=== PATIENT | female | born 1965 | race Caucasian/White ===

== ENCOUNTER 2016-05-18 09:38 | Emergency (ER) | payer BC ==
[~2016-05-18 09:38] MED LIST: ALLEGRA ALLERG180 MG PO; ASPIRIN 32325 MG/TAB PO; ATROVENT I0.2 MG/1 M IH; CELLCEPT500 MG PO; CHANTIX1 TAB PO; CYCLOBENZAPRINE10 M2 PO; CYCLOBENZAPRINE10 MG PO; FIORINAL 50-321 EACH; FIORINAL 50-321 EACH PO; FIORINAL-COD 31 EACH; FLONASE NASAL S16 GM NS; INDOCIN25 MG PO; MEDROL 4MG DOSPA4 MG PO; MIRAPEX0.75 MG PO; NORCO 325 MG-7.1 TAB PO; ORPHENADRINE C100 MG PO; PERCOCET 325 MG1 TA5 PO; PERCOCET 325 MG1 TAB PO; PLAQUENIL200 MG PO; PRAMIPEXOLE D0.25 MG PO; PREDNISONE20 M1 PO; PRILOSEC 20MG20 MG PO; PROVENTIL0.09 MG/Ac IH; ST. JOSEPH81 M2 PO; SYNTHROID0.025 MG PO; SYNTHROID0.1 MG/TAB PO; TRAZADONE HYDR100 MG PO; VENTOLIN0.09 MG IH; ZESTRIL 5MG5 MG PO; ZYRTEC10 M3 PO
[2016-05-18] MEDS ORDERED: MASON NATURAL2000 IU PO (10:27)
[2016-05-18] MEDS ORDERED: POTASSIUM GLUC500 M1 PO (10:27)
[2016-05-18] MEDS ORDERED: ASPIRIN E.C. 8181 MG PO (10:28)
[2016-05-18] MEDS ORDERED: BLACK COHOSH40 M2 PO (10:28)
[2016-05-18] MEDS ORDERED: LOPERAMIDE2 M2 PO (10:29)
[2016-05-18] MEDS ORDERED: LEVO-T112 MCG PO (10:29)
[2016-05-18] MEDS ORDERED: NORCO 325 MG-51 TA1 PO (11:53)
[2016-05-18] MEDS ORDERED: MOBIC7.5 MG PO (11:53)
[2016-05-18 12:27] VITALS: BP 102/59
== END 2016-05-18 12:33 | disposition home or self-care (01) ==
LOC: ED 09:38
DX: M94.0 Chondrocostal junction syndrome [Tietze] (principal); M32.8 Other forms of systemic lupus erythematosus; R07.89 Other chest pain; F17.210 Nicotine dependence, cigarettes, uncomplicated
CPT/HCPCS: J1885; J3010

== ENCOUNTER → 2016-06-17 | Outpatient (CLI) | payer BC ==
[~2016-06-17] MED LIST changes: +ASPIRIN E.C. 8181 MG PO; +BLACK COHOSH40 M2 PO; +LEVO-T112 MCG PO; +LOPERAMIDE2 M2 PO; +MASON NATURAL2000 IU PO; +MOBIC7.5 MG PO; +NORCO 325 MG-51 TA1 PO; +POTASSIUM GLUC500 M1 PO
== END ==
LOC: LAB 13:26
DX: Z00.00 Encounter for general adult medical examination without abnormal findings (principal); K21.0 Gastro-esophageal reflux disease with esophagitis; R03.0 Elevated blood-pressure reading, without diagnosis of hypertension; E03.9 Hypothyroidism, unspecified; G25.81 Restless legs syndrome; M32.9 Systemic lupus erythematosus, unspecified

== ENCOUNTER → 2016-10-13 | Outpatient (CLI) | payer BC | LOC: LAB 19:15 | DX: M32.9 Systemic lupus erythematosus, unspecified (principal); N30.01 Acute cystitis with hematuria ==

== ENCOUNTER → 2016-11-03 | Outpatient (CLI) | payer BC | LOC: LAB 18:51 | DX: N30.01 Acute cystitis with hematuria (principal) ==

== ENCOUNTER → 2016-11-04 | Outpatient (CLI) | payer BC | LOC: LAB 11:58 | DX: N30.01 Acute cystitis with hematuria (principal) ==

== ENCOUNTER → 2016-11-07 | Outpatient (CLI) | payer BC | LOC: LAB 12:16 | DX: M32.9 Systemic lupus erythematosus, unspecified (principal); M54.9 Dorsalgia, unspecified ==

== ENCOUNTER 2016-11-15 15:11 | Emergency (ER) | payer OTHER ==
[~2016-11-15] VITALS: Ht 167.6 cm; Wt 80.9 kg
[2016-11-15] MEDS ORDERED: PREDNISONE20 M1 PO (18:23)
[2016-11-15 18:36] VITALS: BP 123/65
== END 2016-11-15 18:35 | disposition home or self-care (01) ==
LOC: ED 15:11
DX: T78.09XA Anaphylactic reaction due to other food products, initial encounter (principal); R06.02 Shortness of breath; X58.XXXA Exposure to other specified factors, initial encounter
CPT/HCPCS: J0171; J1200; J2930; J7030

== ENCOUNTER 2017-10-27 20:48 | Emergency (ER) | payer BC ==
[~2017-10-27] VITALS: Ht 165.1 cm; Wt 81.8 kg
[~2017-10-27 20:48] MED LIST changes: +PLAQUENIL 200M200 MG PO
[2017-10-27] MEDS ORDERED: MIRAPEX0.75 MG PO (20:56)
[2017-10-27 21:10] LABS: EOS # 0.2 (0.04-0.40); EOS % 2.3 % (1.0-5.0); HEMATOCRIT 44.6 % (37.0-47.0); HEMOGLOBIN 14.7 g/dL (12.5-16.0); LYMPH# 2.4 (1.50-4.00); MEAN CELL VOLUME 94 fl (78-100); MEAN CORPUSCULAR HEMOGLOBIN 31 pg (27-31); MEAN CORPUSCULAR HGB CONC 33 g/dL (33-37); MEAN PLATELET VOLUME 8.9 fl (7.4-10.4); MONO # 0.6 (0.20-0.80); PLATELET COUNT 367 K/mm3 (130-400); RED BLOOD COUNT 4.74 M/mm3 (4.10-5.30); RED CELL DISTRIBUTION WIDTH 14.7 % (11.5-14.5); WHITE BLOOD COUNT 9.3 K/mm3 (4.8-10.8)
[2017-10-27 21:22] LABS: ALBUMIN 4.4 g/dL (3.5-5.0); BUN/CREATININE RATIO 7.3 (6.0-26.0); CALCIUM 9.3 mg/dL (8.4-10.2); POTASSIUM 3.7 mmol/L (3.6-5.0); TOTAL BILIRUBIN 0.7 mg/dL (0.2-1.3); TOTAL PROTEIN 8.3 g/dL (6.3-8.2)
[2017-10-27 21:57] LABS: URINE APPEARANCE CLEAR; URINE BILIRUBIN NEGATIVE (NEGATIVE); URINE BLOOD NEGATIVE (NEGATIVE); URINE COLOR YELLOW; URINE GLUCOSE NEGATIVE (NEGATIVE); URINE KETONE NEGATIVE (NEGATIVE); URINE LEUKOCYTE ESTERASE NEGATIVE (NEGATIVE); URINE NITRATE NEGATIVE (NEGATIVE); URINE PROTEIN(semi-quant) NEGATIVE (NEGATIVE); URINE UROBILINOGEN NORMAL (NORMAL)
[2017-10-27 21:58] LABS: PARTIAL THROMBOPLASTIN TIME 22.4 SECONDS (21.0-32.0); PROTHROMBIN TIME 9.9 SECONDS (9.0-12.0)
[2017-10-28 00:44] VITALS: BP 126/76
== END 2017-10-28 00:44 | disposition short-term general hospital (02) ==
LOC: ED 20:48
PROVIDERS: Family Medicine
DX: R51 Headache (principal); G81.91 Hemiplegia, unspecified affecting right dominant side; R25.9 Unspecified abnormal involuntary movements; M32.9 Systemic lupus erythematosus, unspecified; Z79.899 Other long term (current) drug therapy; Z86.69 Personal history of other diseases of the nervous system and sense organs
CPT/HCPCS: J2060; J2997; J3010

== ENCOUNTER → 2017-11-06 | Outpatient (CLI) | payer BC ==
[2017-10-28 00:44] VITALS: BP 126/76
[~2017-11-06] MED LIST changes: +ACETAMINOPHEN-H1 TA2 PO; +ATORVASTATIN CA40 MG PO; +CEFUROXIME AXE250 MG PO; +CLOPIDOGREL75 M2 PO; +DESYREL50 MG PO; +FEXOFENADINE H180 M1 PO; +LEVOTHYROXINE125 MCG PO; +LISINOPRIL20 MG PO; +OMEPRAZOLE D/R20 MG PO
[2017-11-06 16:08] LABS: PH-URINE 5.5 (5.0 - 8.0); URINE APPEARANCE CLEAR; URINE BILIRUBIN NEGATIVE (NEGATIVE); URINE BLOOD NEGATIVE (NEGATIVE); URINE COLOR PALE YELLOW; URINE GLUCOSE NEGATIVE (NEGATIVE); URINE KETONE NEGATIVE (NEGATIVE); URINE LEUKOCYTE ESTERASE NEGATIVE (NEGATIVE); URINE NITRATE NEGATIVE (NEGATIVE); URINE PROTEIN(semi-quant) TRACE mg/dL (NEGATIVE); URINE UROBILINOGEN NORMAL (NORMAL)
[2017-11-06 16:09] LABS: URINE WBC 0-1 /hpf (0-3)
== END ==
LOC: LAB 15:10
PROVIDERS: Family Medicine
DX: R35.8 Other polyuria (principal)

== ENCOUNTER 2017-11-07 15:51 | Emergency (ER) | payer BC ==
[~2017-11-07] VITALS: Wt 86.5 kg
[~2017-11-07 15:51] MED LIST changes: -ACETAMINOPHEN-H1 TA2 PO; -ATORVASTATIN CA40 MG PO; -CEFUROXIME AXE250 MG PO; -CLOPIDOGREL75 M2 PO; -DESYREL50 MG PO; -FEXOFENADINE H180 M1 PO; -LEVOTHYROXINE125 MCG PO; -LISINOPRIL20 MG PO; -OMEPRAZOLE D/R20 MG PO
[2017-11-07] MEDS ORDERED: LISINOPRIL20 MG PO (16:19)
[2017-11-07] MEDS ORDERED: CEFUROXIME AXE250 MG PO (16:19)
[2017-11-07] MEDS ORDERED: LEVOTHYROXINE125 MCG PO (16:19)
[2017-11-07] MEDS ORDERED: OMEPRAZOLE D/R20 MG PO (16:19)
[2017-11-07] MEDS ORDERED: CLOPIDOGREL75 M2 PO (16:19)
[2017-11-07] MEDS ORDERED: ACETAMINOPHEN-H1 TA2 PO (16:20)
[2017-11-07] MEDS ORDERED: ATORVASTATIN CA40 MG PO (16:20)
[2017-11-07] MEDS ORDERED: DESYREL50 MG PO (16:20)
[2017-11-07] MEDS ORDERED: FIORINAL 50-321 EACH PO (16:20)
[2017-11-07] MEDS ORDERED: FEXOFENADINE H180 M1 PO (16:21)
[2017-11-07 16:57] LABS: EOS # 0.3 (0.04-0.40); EOS % 2.8 % (1.0-5.0); HEMOGLOBIN 13.8 g/dL (12.5-16.0); LYMPH# 2.9 (1.50-4.00); MEAN CELL VOLUME 95 fl (78-100); MEAN CORPUSCULAR HEMOGLOBIN 31 pg (27-31); MEAN CORPUSCULAR HGB CONC 33 g/dL (33-37); MEAN PLATELET VOLUME 9.6 fl (7.4-10.4); NEU # 5.5 (1.40-6.50); PLATELET COUNT 344 K/mm3 (130-400); RED BLOOD COUNT 4.44 M/mm3 (4.10-5.30); RED CELL DISTRIBUTION WIDTH 14.2 % (11.5-14.5); WHITE BLOOD COUNT 9.7 K/mm3 (4.8-10.8)
[2017-11-07 17:09] LABS: ALBUMIN 4.1 g/dL (3.5-5.0); BUN/CREATININE RATIO 16.9 (6.0-26.0); POTASSIUM 3.5 mmol/L (3.6-5.0); TOTAL BILIRUBIN 0.2 mg/dL (0.2-1.3); TOTAL PROTEIN 7.5 g/dL (6.3-8.2)
[2017-11-07 17:53] VITALS: BP 164/76
== END 2017-11-07 17:45 | disposition short-term general hospital (02) ==
LOC: ED 15:51
PROVIDERS: Nurse Practitioner Primary Care
DX: I63.9 Cerebral infarction, unspecified (principal); I10 Essential (primary) hypertension; G81.91 Hemiplegia, unspecified affecting right dominant side; R47.01 Aphasia; R40.2412 Glasgow coma scale score 13-15, at arrival to emergency department; F17.200 Nicotine dependence, unspecified, uncomplicated; Z86.73 Personal history of transient ischemic attack (TIA), and cerebral infarction without residual deficits; M32.9 Systemic lupus erythematosus, unspecified; Z79.899 Other long term (current) drug therapy; Z79.02 Long term (current) use of antithrombotics/antiplatelets; H53.8 Other visual disturbances
CPT/HCPCS: J1170; J3010

== ENCOUNTER → 2017-12-06 | Outpatient (CLI) | payer BC ==
[2017-11-07 17:53] VITALS: BP 164/76
[~2017-12-06] MED LIST changes: +ACETAMINOPHEN-H1 TA2 PO; +ATORVASTATIN CA40 MG PO; +CEFUROXIME AXE250 MG PO; +CLOPIDOGREL75 M2 PO; +DESYREL50 MG PO; +FEXOFENADINE H180 M1 PO; +LEVOTHYROXINE125 MCG PO; +LISINOPRIL20 MG PO; +OMEPRAZOLE D/R20 MG PO
[2017-12-06 12:28] LABS: CALCIUM 9.3 mg/dL (8.4-10.2); POTASSIUM 3.9 mmol/L (3.6-5.0)
== END ==
LOC: LAB 11:27
PROVIDERS: Family Medicine
DX: I63.412 Cerebral infarction due to embolism of left middle cerebral artery (principal); L93.2 Other local lupus erythematosus; R60.9 Edema, unspecified; E03.9 Hypothyroidism, unspecified

== ENCOUNTER → 2017-12-19 | Outpatient (CLI) | payer BC | LOC: MAMMO 13:45 | DX: Z13.820 Encounter for screening for osteoporosis (principal); M85.80 Other specified disorders of bone density and structure, unspecified site; Z87.39 Personal history of other diseases of the musculoskeletal system and connective tissue; Z12.31 Encounter for screening mammogram for malignant neoplasm of breast ==

== ENCOUNTER 2018-01-03 15:28 | Emergency (ER) | payer BC ==
[~2018-01-03] VITALS: Ht 165.1 cm; Wt 83.9 kg
[2018-01-03] MEDS ORDERED: CYCLOBENZAPRINE10 M1 PO (16:08)
[2018-01-03] MEDS ORDERED: ALDACTONE 25MG25 MG PO (16:09)
[2018-01-03] MEDS ORDERED: OSTERA TABLET1 EACH PO (16:09)
[2018-01-03] MEDS ORDERED: CALCIUM 600600 M2 PO (16:09)
[2018-01-03] MEDS ORDERED: PRINIVIL5 M1 PO (16:09)
[2018-01-03] MEDS ORDERED: TOPIRAMATE100 MG PO (16:13)
[2018-01-03] MEDS ORDERED: ALPRAZOLAM0.25 MG PO (16:45)
[2018-01-03 17:00] VITALS: BP 112/65
== END 2018-01-03 16:48 | disposition home or self-care (01) ==
LOC: ED 15:28
DX: F43.9 Reaction to severe stress, unspecified (principal); F98.5 Adult onset fluency disorder; I69.322 Dysarthria following cerebral infarction; I10 Essential (primary) hypertension; J45.909 Unspecified asthma, uncomplicated; F17.200 Nicotine dependence, unspecified, uncomplicated; R40.2412 Glasgow coma scale score 13-15, at arrival to emergency department; G43.909 Migraine, unspecified, not intractable, without status migrainosus; E03.9 Hypothyroidism, unspecified; Z79.02 Long term (current) use of antithrombotics/antiplatelets; Z79.899 Other long term (current) drug therapy

== ENCOUNTER 2018-01-26 10:30 | Outpatient (RCR) | payer BC ==
[~2018-01-26 10:30] MED LIST changes: +ALDACTONE 25MG25 MG PO; +ALPRAZOLAM0.25 MG PO; +CALCIUM 600600 M2 PO; +CYCLOBENZAPRINE10 M1 PO; +OSTERA TABLET1 EACH PO; +PRINIVIL5 M1 PO; +TOPIRAMATE100 MG PO
== END 2018-01-26 11:00 | disposition home or self-care (01) ==
LOC: SPEECH 10:30
DX: I69.351 Hemiplegia and hemiparesis following cerebral infarction affecting right dominant side (principal); I69.320 Aphasia following cerebral infarction; I69.398 Other sequelae of cerebral infarction; L93.1 Subacute cutaneous lupus erythematosus; R51 Headache; F32.9 Major depressive disorder, single episode, unspecified; R60.9 Edema, unspecified; E03.9 Hypothyroidism, unspecified

== ENCOUNTER → 2018-02-02 | Outpatient (CLI) | payer BC ==
[2018-01-03 17:00] VITALS: BP 112/65
== END ==
LOC: LAB 13:59
PROVIDERS: Family Medicine
DX: E03.9 Hypothyroidism, unspecified (principal)

== ENCOUNTER 2018-03-15 14:00 | Outpatient (RCR) | payer BC | END 2018-03-15 14:30 | disposition home or self-care (01) | LOC: SPEECH 14:00 | DX: I69.351 Hemiplegia and hemiparesis following cerebral infarction affecting right dominant side (principal); I69.398 Other sequelae of cerebral infarction; L93.1 Subacute cutaneous lupus erythematosus; R51 Headache; F32.9 Major depressive disorder, single episode, unspecified ==

== ENCOUNTER 2018-05-23 17:51 | Emergency (ER) | payer BC, OTHER ==
[~2018-05-23] VITALS: Ht 165.1 cm; Wt 79.9 kg
[~2018-05-23 17:51] MED LIST changes: -ATORVASTATIN CA40 MG PO; +ATORVASTATIN CA80 MG PO; +FIORICET 325 MG1 TAB PO; +MIRAPEX0.25 M1 PO
[2018-05-23 18:30] LABS: EOS # 0.2 (0.04-0.40); EOS % 2.5 % (1.0-5.0); HEMATOCRIT 41.9 % (37.0-47.0); HEMOGLOBIN 13.4 g/dL (12.5-16.0); MEAN CELL VOLUME 96 fl (78-100); MEAN CORPUSCULAR HEMOGLOBIN 31 pg (27-31); MEAN CORPUSCULAR HGB CONC 32 g/dL (33-37); MEAN PLATELET VOLUME 9.1 fl (7.4-10.4); MONO # 0.6 (0.20-0.80); NEU # 3.9 (1.40-6.50); PLATELET COUNT 373 K/mm3 (130-400); RED BLOOD COUNT 4.38 M/mm3 (4.10-5.30); RED CELL DISTRIBUTION WIDTH 13.6 % (11.5-14.5); WHITE BLOOD COUNT 7.7 K/mm3 (4.8-10.8)
[2018-05-23] MEDS ORDERED: DAILY VALUE1 EACH PO (18:36)
[2018-05-23] MEDS ORDERED: BENADRYL PO (18:39)
[2018-05-23] MEDS ORDERED: EPINEPHRIN0.3 MG/0.3 IJ (18:39)
[2018-05-23] MEDS ORDERED: EXCEDRIN MIGRA1 EACH PO (18:40)
[2018-05-23 18:42] LABS: ALBUMIN 4.2 g/dL (3.5-5.0); CALCIUM 9.5 mg/dL (8.4-10.2); POTASSIUM 3.5 mmol/L (3.6-5.0); TOTAL BILIRUBIN 0.5 mg/dL (0.2-1.3); TOTAL PROTEIN 6.9 g/dL (6.3-8.2)
[2018-05-23 19:20] LABS: URINE COLOR YELLOW
[2018-05-23 19:21] LABS: URINE APPEARANCE CLEAR; URINE BILIRUBIN NEGATIVE (NEGATIVE); URINE BLOOD NEGATIVE (NEGATIVE); URINE GLUCOSE NEGATIVE (NEGATIVE); URINE KETONE NEGATIVE (NEGATIVE); URINE LEUKOCYTE ESTERASE NEGATIVE (NEGATIVE); URINE NITRATE NEGATIVE (NEGATIVE); URINE PROTEIN(semi-quant) TRACE mg/dL (NEGATIVE); URINE UROBILINOGEN NORMAL (NORMAL); URINE WBC 0-1 /hpf (0-3)
[2018-05-23 19:37] VITALS: BP 154/98
== END 2018-05-23 19:38 | disposition home or self-care (01) ==
LOC: ED 17:51
PROVIDERS: Physician Assistant
DX: G43.909 Migraine, unspecified, not intractable, without status migrainosus (principal); E87.6 Hypokalemia; I63.9 Cerebral infarction, unspecified; I10 Essential (primary) hypertension; E03.9 Hypothyroidism, unspecified; L93.0 Discoid lupus erythematosus; Z88.2 Allergy status to sulfonamides; Z88.0 Allergy status to penicillin; Z88.5 Allergy status to narcotic agent; Z88.6 Allergy status to analgesic agent; Z87.891 Personal history of nicotine dependence; Z90.49 Acquired absence of other specified parts of digestive tract; Z90.710 Acquired absence of both cervix and uterus
CPT/HCPCS: J1885; J2405; J3010; J7030

== ENCOUNTER → 2018-07-23 | Outpatient (CLI) | payer BC, OTHER ==
[~2018-07-23] MED LIST changes: +BENADRYL PO; +DAILY VALUE1 EACH PO; +EPINEPHRIN0.3 MG/0.3 IJ; +EXCEDRIN MIGRA1 EACH PO
[2018-07-23 17:53] LABS: EOS # 0.2 (0.04-0.40); EOS % 2.4 % (1.0-5.0); HEMATOCRIT 41.5 % (37.0-47.0); LYMPH# 2.8 (1.50-4.00); MEAN CELL VOLUME 96 fl (78-100); MEAN CORPUSCULAR HEMOGLOBIN 30 pg (27-31); MEAN CORPUSCULAR HGB CONC 31 g/dL (33-37); MEAN PLATELET VOLUME 9.2 fl (7.4-10.4); MONO # 0.6 (0.20-0.80); NEU # 4.3 (1.40-6.50); PLATELET COUNT 397 K/mm3 (130-400); RED BLOOD COUNT 4.34 M/mm3 (4.10-5.30); RED CELL DISTRIBUTION WIDTH 13.4 % (11.5-14.5); WHITE BLOOD COUNT 7.9 K/mm3 (4.8-10.8)
[2018-07-23 17:57] LABS: ALBUMIN 4.2 g/dL (3.5-5.0); CALCIUM 9.7 mg/dL (8.4-10.2); POTASSIUM 3.2 mmol/L (3.6-5.0); TOTAL BILIRUBIN 0.4 mg/dL (0.2-1.3); TOTAL PROTEIN 7.2 g/dL (6.3-8.2)
[2018-07-24 16:53] LABS: HEPATITIS B CORE AB TOTAL Negative (()); HEPATITIS B SURFACE ANTIGEN Negative (Negative); HEPATITIS C VIRUS ANTIBODY Negative (Negative)
== END ==
LOC: LAB 16:51
PROVIDERS: Physician Assistant
DX: B19.20 Unspecified viral hepatitis C without hepatic coma (principal); Z79.899 Other long term (current) drug therapy

== ENCOUNTER 2018-09-26 22:17 | Emergency (ER) | payer BC, OTHER ==
[2018-09-26] MEDS ORDERED: MIRAPEX0.75 MG PO (23:35)
[2018-09-26] MEDS ORDERED: TOBRAMYCIN AND D5 ML OP (23:36)
[2018-09-26] MEDS ORDERED: AIMOVIG AU140 MG/1 M SQ (23:36)
[2018-09-26] MEDS ORDERED: NEURONTIN300 MG/CAP PO (23:37)
[2018-09-26] MEDS ORDERED: METOCLOPRAMIDE10 M5 PO (23:37)
[2018-09-26] MEDS ORDERED: HUMIRA PEN80 MG/0.8 SQ (23:37)
[2018-09-26] MEDS ORDERED: BUTORPHANOL10 MG/M1 NS (23:38)
[2018-09-26] MEDS ORDERED: POTASSIUM600 MG PO (23:39)
[2018-09-27 00:24] VITALS: BP 152/96
== END 2018-09-27 00:28 | disposition home or self-care (01) ==
LOC: ED 22:17
DX: G43.909 Migraine, unspecified, not intractable, without status migrainosus (principal); I10 Essential (primary) hypertension; Z86.73 Personal history of transient ischemic attack (TIA), and cerebral infarction without residual deficits; Z90.49 Acquired absence of other specified parts of digestive tract; Z90.710 Acquired absence of both cervix and uterus; Z79.02 Long term (current) use of antithrombotics/antiplatelets; Z88.0 Allergy status to penicillin; Z88.2 Allergy status to sulfonamides; Z88.5 Allergy status to narcotic agent; Z88.6 Allergy status to analgesic agent; Z88.8 Allergy status to other drugs, medicaments and biological substances; Z87.891 Personal history of nicotine dependence
CPT/HCPCS: J1200; J1885; J2550

== ENCOUNTER → 2018-11-09 | Outpatient (CLI) | payer BC, OTHER ==
[~2018-11-09] MED LIST changes: +AIMOVIG AU140 MG/1 M SQ; +BUTORPHANOL10 MG/M1 NS; +HUMIRA PEN80 MG/0.8 SQ; +METOCLOPRAMIDE10 M5 PO; +NEURONTIN300 MG/CAP PO; +POTASSIUM600 MG PO; +TOBRAMYCIN AND D5 ML OP
[2018-11-09 11:05] LABS: EOS # 0.2 (0.04-0.40); EOS % 1.5 % (1.0-5.0); HEMATOCRIT 42.6 % (37.0-47.0); LYMPH# 3.3 (1.50-4.00); MEAN CELL VOLUME 94 fl (78-100); MEAN CORPUSCULAR HEMOGLOBIN 31 pg (27-31); MEAN CORPUSCULAR HGB CONC 33 g/dL (33-37); MEAN PLATELET VOLUME 8.8 fl (7.4-10.4); MONO # 0.8 (0.20-0.80); NEU # 6.4 (1.40-6.50); PLATELET COUNT 357 K/mm3 (130-400); RED BLOOD COUNT 4.53 M/mm3 (4.10-5.30); RED CELL DISTRIBUTION WIDTH 13.9 % (11.5-14.5); WHITE BLOOD COUNT 10.7 K/mm3 (4.8-10.8)
[2018-11-09 12:42] LABS: ALBUMIN 4.1 g/dL (3.5-5.0); POTASSIUM 3.6 mmol/L (3.5-5.1)
[2018-11-09 12:43] LABS: CALCIUM 9.6 mg/dL (8.3-10.5)
[2018-11-09 12:44] LABS: TOTAL PROTEIN 6.8 g/dL (6.4-8.3)
[2018-11-09 12:46] LABS: TOTAL BILIRUBIN 0.5 mg/dL (0.2-1.2)
[2018-11-09 14:15] LABS: URINE MUCUS PRESENT (NOT PRESENT)
== END ==
LOC: LAB 10:55
DX: M32.12 Pericarditis in systemic lupus erythematosus (principal)

== ENCOUNTER → 2018-11-14 | Outpatient (CLI) | payer BC, OTHER | LOC: RAD 06:57 | DX: M51.16 Intervertebral disc disorders with radiculopathy, lumbar region (principal); M51.17 Intervertebral disc disorders with radiculopathy, lumbosacral region; M46.96 Unspecified inflammatory spondylopathy, lumbar region; M46.97 Unspecified inflammatory spondylopathy, lumbosacral region; M32.9 Systemic lupus erythematosus, unspecified ==

== ENCOUNTER → 2018-12-31 | Outpatient (CLI) | payer BC, OTHER ==
[2018-12-31 16:57] LABS: HEMATOCRIT 40.3 % (37.0-47.0); HEMOGLOBIN 13.3 g/dL (12.5-16.0); MEAN PLATELET VOLUME 9.1 fl (7.4-10.4); RED BLOOD COUNT 4.25 M/mm3 (4.10-5.30); RED CELL DISTRIBUTION WIDTH 14.6 % (11.5-14.5); WHITE BLOOD COUNT 7.2 K/mm3 (4.8-10.8)
[2018-12-31 17:14] LABS: ALBUMIN 4.2 g/dL (3.5-5.0)
== END ==
LOC: LAB 16:34
PROVIDERS: Family Medicine
DX: Z51.81 Encounter for therapeutic drug level monitoring (principal); Z79.899 Other long term (current) drug therapy

== ENCOUNTER → 2019-01-22 | Outpatient (CLI) | payer BC | LOC: MAMMO 11:19 | DX: Z12.31 Encounter for screening mammogram for malignant neoplasm of breast (principal) ==

== ENCOUNTER → 2019-05-02 | Outpatient (CLI) | payer BC | LOC: LAB 10:44 | DX: E03.9 Hypothyroidism, unspecified (principal); E78.00 Pure hypercholesterolemia, unspecified ==

== ENCOUNTER → 2019-05-22 | Outpatient (CLI) | payer BC | LOC: RAD 07:09 | DX: M25.751 Osteophyte, right hip (principal) ==

== ENCOUNTER → 2019-07-22 | Outpatient (CLI) | payer BC | LOC: LAB 16:26 | DX: R05 Cough (principal) ==

== ENCOUNTER 2019-07-30 15:17 | Emergency (ER) | payer BC ==
[~2019-07-30] VITALS: Ht 165.1 cm; Wt 81.8 kg
[2019-07-30 16:25] LABS: EOS # 0.2 (0.04-0.40); EOS % 2.4 % (1.0-5.0); HEMOGLOBIN 13.9 g/dL (12.5-16.0); LYMPH# 3.5 (1.50-4.00); MEAN CELL VOLUME 98 fl (78-100); MEAN CORPUSCULAR HEMOGLOBIN 31 pg (27-31); MEAN CORPUSCULAR HGB CONC 32 g/dL (33-37); MEAN PLATELET VOLUME 9.4 fl (7.4-10.4); MONO # 0.9 (0.20-0.80); PLATELET COUNT 310 K/mm3 (130-400); RED BLOOD COUNT 4.48 M/mm3 (4.10-5.30); RED CELL DISTRIBUTION WIDTH 14.4 % (11.5-14.5); WHITE BLOOD COUNT 9.7 K/mm3 (4.8-10.8)
[2019-07-30 16:34] LABS: ALBUMIN 4.1 g/dL (3.5-5.0)
[2019-07-30 16:35] LABS: SODIUM 143 mmol/L (136-145)
[2019-07-30 16:36] LABS: CALCIUM 9.2 mg/dL (8.3-10.5)
[2019-07-30 16:37] LABS: GLUCOSE 72 mg/dL (65-105); TOTAL PROTEIN 6.8 g/dL (6.4-8.3)
[2019-07-30 16:38] LABS: CARBON DIOXIDE 24 mmol/L (22-29)
[2019-07-30 16:39] LABS: TOTAL BILIRUBIN 0.4 mg/dL (0.2-1.2)
[2019-07-30 16:42] LABS: AST-SGOT 19 U/L (5-34)
[2019-07-30 16:43] LABS: ALT/SGPT 25 U/L (0-55)
[2019-07-30 16:45] LABS: D-DIMER 0.27 mg/L FEU (0.15-0.50)
[2019-07-30 16:46] LABS: URINE APPEARANCE CLEAR; URINE COLOR YELLOW
[2019-07-30 16:47] LABS: URINE BILIRUBIN NEGATIVE (NEGATIVE); URINE BLOOD NEGATIVE (NEGATIVE); URINE GLUCOSE NEGATIVE (NEGATIVE); URINE KETONE NEGATIVE (NEGATIVE); URINE LEUKOCYTE ESTERASE NEGATIVE (NEGATIVE); URINE MUCUS PRESENT (NOT PRESENT); URINE NITRATE NEGATIVE (NEGATIVE); URINE PROTEIN(semi-quant) TRACE mg/dL (NEGATIVE); URINE UROBILINOGEN NORMAL (NORMAL)
[2019-07-30 16:50] LABS: TROPONIN-I < 0.03 ng/mL (<0.030)
[2019-07-30] MEDS ORDERED: ZESTRIL5 M1 PO (17:16)
[2019-07-30] MEDS ORDERED: PROAIR HFA0.09 MG/AC INH (17:17)
[2019-07-30] MEDS ORDERED: ALBUTEROL2.5 MG/3 M INH (17:18)
[2019-07-30] MEDS ORDERED: FLUTICASON0.05 MG/AC NS (17:19)
[2019-07-30 20:11] VITALS: BP 115/69
== END 2019-07-30 20:11 | disposition home or self-care (01) ==
LOC: ED 15:17
PROVIDERS: Nurse Practitioner Family
DX: I95.1 Orthostatic hypotension (principal); E86.0 Dehydration; G43.909 Migraine, unspecified, not intractable, without status migrainosus; E03.9 Hypothyroidism, unspecified; K21.9 Gastro-esophageal reflux disease without esophagitis; I10 Essential (primary) hypertension; Z87.891 Personal history of nicotine dependence; Z86.73 Personal history of transient ischemic attack (TIA), and cerebral infarction without residual deficits; Z90.710 Acquired absence of both cervix and uterus; Z90.89 Acquired absence of other organs; Z79.02 Long term (current) use of antithrombotics/antiplatelets; Z79.51 Long term (current) use of inhaled steroids
CPT/HCPCS: J0595; J7030

== ENCOUNTER → 2019-09-26 | Outpatient (CLI) | payer BC ==
[~2019-09-26] MED LIST changes: +ALBUTEROL2.5 MG/3 M INH; +FLUTICASON0.05 MG/AC NS; +PROAIR HFA0.09 MG/AC INH; +ZESTRIL5 M1 PO
[2019-09-26 15:04] LABS: EOS # 0.2 (0.04-0.40); EOS % 3.1 % (1.0-5.0); HEMATOCRIT 43.1 % (37.0-47.0); LYMPH# 2.6 (1.50-4.00); MEAN CELL VOLUME 96 fl (78-100); MEAN CORPUSCULAR HEMOGLOBIN 31 pg (27-31); MEAN CORPUSCULAR HGB CONC 33 g/dL (33-37); MEAN PLATELET VOLUME 9.2 fl (7.4-10.4); MONO # 0.6 (0.20-0.80); NEU # 3.6 (1.40-6.50); PLATELET COUNT 352 K/mm3 (130-400); RED BLOOD COUNT 4.48 M/mm3 (4.10-5.30); RED CELL DISTRIBUTION WIDTH 14.1 % (11.5-14.5); WHITE BLOOD COUNT 7.1 K/mm3 (4.8-10.8)
[2019-09-26 15:10] LABS: ALBUMIN 4.1 g/dL (3.5-5.0)
[2019-09-26 15:11] LABS: POTASSIUM 3.9 mmol/L (3.5-5.1)
[2019-09-26 15:12] LABS: CALCIUM 9.1 mg/dL (8.3-10.5)
[2019-09-26 15:13] LABS: TOTAL PROTEIN 6.6 g/dL (6.4-8.3)
[2019-09-26 15:15] LABS: TOTAL BILIRUBIN 0.3 mg/dL (0.2-1.2)
[2019-09-26 15:17] LABS: PH-URINE 7.5 (5.0 - 8.0); URINE APPEARANCE CLEAR; URINE BILIRUBIN NEGATIVE (NEGATIVE); URINE BLOOD NEGATIVE (NEGATIVE); URINE COLOR YELLOW; URINE GLUCOSE NEGATIVE (NEGATIVE); URINE KETONE NEGATIVE (NEGATIVE); URINE LEUKOCYTE ESTERASE NEGATIVE (NEGATIVE); URINE NITRATE NEGATIVE (NEGATIVE); URINE PROTEIN(semi-quant) NEGATIVE (NEGATIVE); URINE UROBILINOGEN NORMAL (NORMAL); URINE WBC 0-1 /hpf (0-3)
[2019-09-26 15:27] LABS: PARTIAL THROMBOPLASTIN TIME 23.4 SECONDS (21.0-32.0); PROTHROMBIN TIME 9.6 SECONDS (9.0-12.0)
== END ==
LOC: AMSURD 14:30
PROVIDERS: Family Medicine
DX: Z01.818 Encounter for other preprocedural examination (principal); M48.062 Spinal stenosis, lumbar region with neurogenic claudication; I63.412 Cerebral infarction due to embolism of left middle cerebral artery; I10 Essential (primary) hypertension; M32.9 Systemic lupus erythematosus, unspecified

== ENCOUNTER 2019-09-30 16:22 | Emergency (ER) | payer BC ==
[~2019-09-30] VITALS: Ht 165.1 cm; Wt 84.9 kg
[2019-09-30 17:56] LABS: EOS # 0.2 (0.04-0.40); EOS % 1.4 % (1.0-5.0); HEMATOCRIT 42.1 % (37.0-47.0); HEMOGLOBIN 13.6 g/dL (12.5-16.0); MEAN CELL VOLUME 96 fl (78-100); MEAN CORPUSCULAR HEMOGLOBIN 31 pg (27-31); MEAN CORPUSCULAR HGB CONC 32 g/dL (33-37); MEAN PLATELET VOLUME 9.5 fl (7.4-10.4); MONO # 0.8 (0.20-0.80); NEU # 7.9 (1.40-6.50); PLATELET COUNT 333 K/mm3 (130-400); RED BLOOD COUNT 4.39 M/mm3 (4.10-5.30); RED CELL DISTRIBUTION WIDTH 13.6 % (11.5-14.5); WHITE BLOOD COUNT 10.9 K/mm3 (4.8-10.8)
[2019-09-30 18:02] LABS: ALBUMIN 3.9 g/dL (3.5-5.0); POTASSIUM 3.9 mmol/L (3.5-5.1)
[2019-09-30 18:03] LABS: CALCIUM 8.3 mg/dL (8.3-10.5)
[2019-09-30 18:05] LABS: TOTAL PROTEIN 6.3 g/dL (6.4-8.3)
[2019-09-30 18:06] LABS: TOTAL BILIRUBIN 0.4 mg/dL (0.2-1.2)
[2019-09-30 19:00] VITALS: BP 181/117
== END 2019-09-30 19:20 | disposition short-term general hospital (02) ==
LOC: ED 16:22
PROVIDERS: Family Medicine
DX: T23.352A Burn of third degree of left palm, initial encounter (principal); T25.322A Burn of third degree of left foot, initial encounter; T25.321A Burn of third degree of right foot, initial encounter; T21.01XA Burn of unspecified degree of chest wall, initial encounter; T21.02XA Burn of unspecified degree of abdominal wall, initial encounter; T31.10 Burns involving 10-19% of body surface with 0% to 9% third degree burns; X14.1XXA Other contact with hot air and other hot gases, initial encounter; Y92.009 Unspecified place in unspecified non-institutional (private) residence as the place of occurrence of the external cause
CPT/HCPCS: J1170; J2270; J2405; J7030

== ENCOUNTER 2019-11-08 11:36 | Emergency (ER) | payer BC, OTHER ==
[~2019-11-08] VITALS: Ht 162.6 cm; Wt 80.9 kg
[2019-11-08 12:43] LABS: EOS # 0.2 (0.04-0.40); EOS % 2.5 % (1.0-5.0); HEMATOCRIT 42.4 % (37.0-47.0); HEMOGLOBIN 13.7 g/dL (12.5-16.0); LYMPH# 2.2 (1.50-4.00); MEAN CELL VOLUME 97 fl (78-100); MEAN CORPUSCULAR HEMOGLOBIN 31 pg (27-31); MEAN CORPUSCULAR HGB CONC 32 g/dL (33-37); MEAN PLATELET VOLUME 9.3 fl (7.4-10.4); MONO # 0.5 (0.20-0.80); NEU # 3.9 (1.40-6.50); PLATELET COUNT 365 K/mm3 (130-400); RED BLOOD COUNT 4.38 M/mm3 (4.10-5.30); RED CELL DISTRIBUTION WIDTH 13.9 % (11.5-14.5); WHITE BLOOD COUNT 6.7 K/mm3 (4.8-10.8)
[2019-11-08 12:48] LABS: ALBUMIN 4.2 g/dL (3.5-5.0); POTASSIUM 3.7 mmol/L (3.5-5.1); SODIUM 143 mmol/L (136-145)
[2019-11-08 12:49] LABS: CALCIUM 9.3 mg/dL (8.3-10.5)
[2019-11-08 12:51] LABS: GLUCOSE 107 mg/dL (65-105)
[2019-11-08 12:52] LABS: CARBON DIOXIDE 24 mmol/L (22-29); TOTAL BILIRUBIN 0.2 mg/dL (0.2-1.2)
[2019-11-08 12:55] LABS: PARTIAL THROMBOPLASTIN TIME 22.5 SECONDS (21.0-32.0); PROTHROMBIN TIME 9.3 SECONDS (9.0-12.0)
[2019-11-08 12:56] LABS: AST-SGOT 13 U/L (5-34)
[2019-11-08 12:57] LABS: ALT/SGPT 16 U/L (0-55)
[2019-11-08 13:04] LABS: TROPONIN-I < 0.03 ng/mL (<0.030)
[2019-11-08 13:55] LABS: URINE APPEARANCE CLEAR; URINE BILIRUBIN NEGATIVE (NEGATIVE); URINE BLOOD NEGATIVE (NEGATIVE); URINE COLOR YELLOW; URINE GLUCOSE NEGATIVE (NEGATIVE); URINE KETONE NEGATIVE (NEGATIVE); URINE LEUKOCYTE ESTERASE NEGATIVE (NEGATIVE); URINE NITRATE NEGATIVE (NEGATIVE); URINE PROTEIN(semi-quant) TRACE mg/dL (NEGATIVE); URINE UROBILINOGEN NORMAL (NORMAL)
[2019-11-08 13:56] LABS: URINE MUCUS PRESENT (NOT PRESENT)
[2019-11-08 15:59] VITALS: BP 137/81
== END 2019-11-08 16:00 | disposition home or self-care (01) ==
LOC: ED 11:36
PROVIDERS: Nurse Practitioner
DX: R51 Headache (principal); I10 Essential (primary) hypertension; M54.2 Cervicalgia; Z86.73 Personal history of transient ischemic attack (TIA), and cerebral infarction without residual deficits; Z87.891 Personal history of nicotine dependence; Z79.02 Long term (current) use of antithrombotics/antiplatelets; Z79.51 Long term (current) use of inhaled steroids
CPT/HCPCS: J1170; J1885; J2405; J7030

== ENCOUNTER 2019-11-25 20:59 | Emergency (ER) | payer BC, OTHER ==
[~2019-11-25] VITALS: Ht 165.1 cm; Wt 79.4 kg
[2019-11-25] MEDS ORDERED: TIZANIDINE HYDRO4 MG PO (21:17)
[2019-11-25] MEDS ORDERED: METHOCARBAMOL500 M1 PO (21:17)
[2019-11-25] MEDS ORDERED: ZESTRIL5 M1 PO (21:18)
[2019-11-25 21:30] LABS: EOS # 0.3 (0.04-0.40); EOS % 1.8 % (1.0-5.0); HEMATOCRIT 46.1 % (37.0-47.0); HEMOGLOBIN 15.2 g/dL (12.5-16.0); LYMPH# 4.5 (1.50-4.00); MEAN CELL VOLUME 96 fl (78-100); MEAN CORPUSCULAR HEMOGLOBIN 32 pg (27-31); MEAN CORPUSCULAR HGB CONC 33 g/dL (33-37); MEAN PLATELET VOLUME 8.6 fl (7.4-10.4); MONO # 0.9 (0.20-0.80); PLATELET COUNT 428 K/mm3 (130-400); RED BLOOD COUNT 4.81 M/mm3 (4.10-5.30); RED CELL DISTRIBUTION WIDTH 13.6 % (11.5-14.5); WHITE BLOOD COUNT 15.2 K/mm3 (4.8-10.8)
[2019-11-25 21:32] LABS: NEU # 9.4 (1.40-6.50)
[2019-11-25 21:39] LABS: ALBUMIN 4.5 g/dL (3.5-5.0)
[2019-11-25 21:40] LABS: POTASSIUM 3.5 mmol/L (3.5-5.1)
[2019-11-25 21:41] LABS: CALCIUM 9.5 mg/dL (8.3-10.5)
[2019-11-25 21:42] LABS: TOTAL PROTEIN 7.7 g/dL (6.4-8.3)
[2019-11-25 21:44] LABS: TOTAL BILIRUBIN 0.3 mg/dL (0.2-1.2)
[2019-11-25 23:32] LABS: URINE APPEARANCE CLEAR; URINE COLOR YELLOW; URINE GLUCOSE NEGATIVE (NEGATIVE); URINE KETONE NEGATIVE (NEGATIVE); URINE PROTEIN(semi-quant) NEGATIVE (NEGATIVE)
[2019-11-25 23:33] LABS: URINE BILIRUBIN NEGATIVE (NEGATIVE); URINE BLOOD NEGATIVE (NEGATIVE); URINE LEUKOCYTE ESTERASE NEGATIVE (NEGATIVE); URINE NITRATE NEGATIVE (NEGATIVE); URINE UROBILINOGEN NORMAL (NORMAL); URINE WBC 0-1 /hpf (0-3)
[2019-11-26 01:11] VITALS: BP 156/105
== END 2019-11-26 01:11 | disposition short-term general hospital (02) ==
LOC: ED 20:59
PROVIDERS: Nurse Practitioner
DX: T81.89XA Other complications of procedures, not elsewhere classified, initial encounter (principal); M54.5 Low back pain; G89.18 Other acute postprocedural pain; Z87.891 Personal history of nicotine dependence; Z90.710 Acquired absence of both cervix and uterus; Z90.49 Acquired absence of other specified parts of digestive tract; Z98.890 Other specified postprocedural states
CPT/HCPCS: J2550; J3010

== ENCOUNTER → 2019-12-05 | Outpatient (CLI) | payer BC, OTHER ==
[2019-11-26 01:11] VITALS: BP 156/105
[~2019-12-05] MED LIST changes: +METHOCARBAMOL500 M1 PO; +TIZANIDINE HYDRO4 MG PO
[2019-12-05 09:32] LABS: POTASSIUM 3.8 mmol/L (3.5-5.1)
[2019-12-05 09:34] LABS: CALCIUM 9.6 mg/dL (8.3-10.5)
[2019-12-05 09:41] LABS: EOS # 0.3 (0.04-0.40); HEMATOCRIT 41.4 % (37.0-47.0); HEMOGLOBIN 13.3 g/dL (12.5-16.0); LYMPH# 4.1 (1.50-4.00); MEAN CELL VOLUME 99 fl (78-100); MEAN CORPUSCULAR HEMOGLOBIN 32 pg (27-31); MEAN CORPUSCULAR HGB CONC 32 g/dL (33-37); MEAN PLATELET VOLUME 9.1 fl (7.4-10.4); NEU # 5.1 (1.40-6.50); PLATELET COUNT 405 K/mm3 (130-400); RED BLOOD COUNT 4.19 M/mm3 (4.10-5.30); RED CELL DISTRIBUTION WIDTH 13.7 % (11.5-14.5); WHITE BLOOD COUNT 10.6 K/mm3 (4.8-10.8)
[2019-12-05 23:15] LABS: FOLATE (FOLIC ACID) 14.9 ng/mL (7.0-31.4)
== END ==
LOC: LAB 09:16
PROVIDERS: Family Medicine
DX: M54.9 Dorsalgia, unspecified (principal); M79.604 Pain in right leg

== ENCOUNTER 2020-01-27 15:48 | Emergency (ER) | payer BC, OTHER ==
[~2020-01-27] VITALS: Ht 165.1 cm; Wt 85.4 kg
[2020-01-27] MEDS ORDERED: AGGRENOX 25 MG-1 CER PO (16:07)
[2020-01-27 16:39] LABS: EOS # 0.2 (0.04-0.40); EOS % 1.9 % (1.0-5.0); HEMATOCRIT 40.9 % (37.0-47.0); HEMOGLOBIN 13.3 g/dL (12.5-16.0); LYMPH# 3.8 (1.50-4.00); MEAN CELL VOLUME 97 fl (78-100); MEAN CORPUSCULAR HEMOGLOBIN 31 pg (27-31); MEAN CORPUSCULAR HGB CONC 33 g/dL (33-37); MEAN PLATELET VOLUME 9.1 fl (7.4-10.4); MONO # 1.1 (0.20-0.80); NEU # 4.6 (1.40-6.50); PLATELET COUNT 378 K/mm3 (130-400); RED BLOOD COUNT 4.24 M/mm3 (4.10-5.30); RED CELL DISTRIBUTION WIDTH 14.3 % (11.5-14.5); WHITE BLOOD COUNT 9.7 K/mm3 (4.8-10.8)
[2020-01-27 16:49] LABS: ALBUMIN 4.3 g/dL (3.5-5.0); POTASSIUM 3.4 mmol/L (3.5-5.1); SODIUM 142 mmol/L (136-145)
[2020-01-27 16:50] LABS: CALCIUM 9.4 mg/dL (8.3-10.5)
[2020-01-27 16:51] LABS: GLUCOSE 101 mg/dL (65-105); PROTHROMBIN TIME 10.5 SECONDS (9.0-12.0)
[2020-01-27 16:52] LABS: TOTAL PROTEIN 6.8 g/dL (6.4-8.3)
[2020-01-27 16:53] LABS: CARBON DIOXIDE 22 mmol/L (22-29); TOTAL BILIRUBIN 0.6 mg/dL (0.2-1.2)
[2020-01-27 16:57] LABS: AST-SGOT 18 U/L (5-34)
[2020-01-27 16:58] LABS: ALT/SGPT 17 U/L (0-55)
[2020-01-27 17:02] LABS: PARTIAL THROMBOPLASTIN TIME 23.2 SECONDS (21.0-32.0)
[2020-01-27 17:21] LABS: TROPONIN-I < 0.03 ng/mL (<0.030)
[2020-01-27 20:35] VITALS: BP 144/93
== END 2020-01-27 20:35 | disposition home or self-care (01) ==
LOC: ED 15:48
PROVIDERS: Nurse Practitioner
DX: R51.9 Headache, unspecified (principal); G51.0 Bell's palsy; Z87.891 Personal history of nicotine dependence; Z86.19 Personal history of other infectious and parasitic diseases; Z86.73 Personal history of transient ischemic attack (TIA), and cerebral infarction without residual deficits; Z90.49 Acquired absence of other specified parts of digestive tract; Z90.89 Acquired absence of other organs; Z79.02 Long term (current) use of antithrombotics/antiplatelets; Z88.0 Allergy status to penicillin; Z88.2 Allergy status to sulfonamides; Z88.6 Allergy status to analgesic agent; Z88.8 Allergy status to other drugs, medicaments and biological substances; Z90.710 Acquired absence of both cervix and uterus; Z79.82 Long term (current) use of aspirin
CPT/HCPCS: J7030

== ENCOUNTER 2020-03-23 13:26 | Emergency (ER) | payer BC, OTHER ==
[~2020-03-23 13:26] MED LIST changes: +AGGRENOX 25 MG-1 CER PO
[2020-03-23] MEDS ORDERED: REGLAN10 M2 PO (17:25)
[2020-03-23] MEDS ORDERED: SUMATRIPTAN SUC50 M1 PO (17:25)
[2020-03-23 18:20] VITALS: BP 136/89
== END 2020-03-23 18:01 | disposition home or self-care (01) ==
LOC: ED 13:26
DX: G43.909 Migraine, unspecified, not intractable, without status migrainosus (principal); I10 Essential (primary) hypertension; Z86.73 Personal history of transient ischemic attack (TIA), and cerebral infarction without residual deficits; Z88.0 Allergy status to penicillin; Z88.2 Allergy status to sulfonamides; Z88.6 Allergy status to analgesic agent; Z79.02 Long term (current) use of antithrombotics/antiplatelets; Z79.82 Long term (current) use of aspirin; Z79.83 Long term (current) use of bisphosphonates; Z79.899 Other long term (current) drug therapy
CPT/HCPCS: J2765; J3030; J7030

== ENCOUNTER → 2020-04-27 | Outpatient (CLI) | payer BC ==
[~2020-04-27] MED LIST changes: +REGLAN10 M2 PO; +SUMATRIPTAN SUC50 M1 PO
[2020-04-27 16:12] LABS: ALBUMIN 4.1 g/dL (3.5-5.0); POTASSIUM 3.7 mmol/L (3.5-5.1)
[2020-04-27 16:13] LABS: CALCIUM 9.3 mg/dL (8.3-10.5)
[2020-04-27 16:15] LABS: TOTAL PROTEIN 6.8 g/dL (6.4-8.3)
[2020-04-27 16:16] LABS: TOTAL BILIRUBIN 0.2 mg/dL (0.2-1.2)
== END ==
LOC: LAB 15:50
PROVIDERS: Family Medicine
DX: I63.40 Cerebral infarction due to embolism of unspecified cerebral artery (principal); R03.0 Elevated blood-pressure reading, without diagnosis of hypertension; E03.9 Hypothyroidism, unspecified

== ENCOUNTER → 2020-05-27 | Outpatient (CLI) | payer BC | LOC: LAB 06:41 | DX: E16.2 Hypoglycemia, unspecified (principal); E55.9 Vitamin D deficiency, unspecified ==

== ENCOUNTER → 2020-06-23 | Outpatient (CLI) | payer BC | LOC: MAMMO 08:25 | DX: Z12.31 Encounter for screening mammogram for malignant neoplasm of breast (principal) ==

== ENCOUNTER → 2020-07-20 | Outpatient (CLI) | payer BC, OTHER | LOC: LAB 08:52 | DX: E03.9 Hypothyroidism, unspecified (principal); E55.9 Vitamin D deficiency, unspecified ==

== ENCOUNTER → 2020-07-21 | Outpatient (CLI) | payer BC, OTHER | LOC: LAB 04:23 | DX: E78.00 Pure hypercholesterolemia, unspecified (principal) ==

== ENCOUNTER → 2020-11-05 | Outpatient (CLI) | payer BC, OTHER ==
[2020-11-05 15:50] LABS: CALCIUM 9.7 mg/dL (8.3-10.5)
[2020-11-05 16:00] LABS: MAGNESIUM 1.55 mg/dL (1.60-2.60)
== END ==
LOC: LAB 15:23
PROVIDERS: Physician Assistant
DX: R52 Pain, unspecified (principal)

== ENCOUNTER → 2020-11-12 | Outpatient (CLI) | payer BC, OTHER | LOC: LAB 16:48 | DX: E83.42 Hypomagnesemia (principal) ==

== ENCOUNTER → 2021-01-19 | Outpatient (CLI) | payer BC, OTHER | LOC: RAD 07:45 | DX: M47.26 Other spondylosis with radiculopathy, lumbar region (principal); M47.27 Other spondylosis with radiculopathy, lumbosacral region; Z98.890 Other specified postprocedural states ==

== ENCOUNTER 2021-02-08 07:59 | Outpatient (RCR) | payer BC, OTHER | END 2021-03-08 17:00 | disposition home or self-care (01) | LOC: PT 07:59 | DX: M54.16 Radiculopathy, lumbar region (principal) ==